=== PATIENT | female | born 1995 | race African-American/Black ===

== ENCOUNTER 2019-01-19 00:50 | Emergency (ER) | payer SELFPAY ==
[~2019-01-19] VITALS: Ht 165.1 cm; Wt 86.2 kg
[2019-01-19 00:55] VITALS: BP 126/99
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
== END 2019-01-19 02:08 | disposition short-term general hospital (02) ==
LOC: ER 00:50
DX: S80.12XA Contusion of left lower leg, initial encounter (principal); S80.11XA Contusion of right lower leg, initial encounter; S00.11XA Contusion of right eyelid and periocular area, initial encounter; N93.9 Abnormal uterine and vaginal bleeding, unspecified; T76.21XA Adult sexual abuse, suspected, initial encounter; Y04.8XXA Assault by other bodily force, initial encounter; Y93.89 Activity, other specified; Y92.149 Unspecified place in prison as the place of occurrence of the external cause; Y99.8 Other external cause status
CPT/HCPCS: 99285